=== PATIENT | female | born 1985 | race Caucasian/White ===

== ENCOUNTER 2019-11-24 14:35 | Emergency (ER) | payer OTHER ==
--- NOTE | 2019-11-24 14:56 | ER Document Report ---
ED Medical Screen (RME) - General Chief Complaint: Dizziness Stated Complaint: DIZZINESS Time Seen by Provider: 11/24/19 14:54 Mode of Arrival: Ambulatory Information source: Patient Notes: 34-year-old female presents to ED for concerns planing of dizziness and lightheadedness. She states is been going on for months but has been more frequently this last week and then today is constant. She states usually she does not have the dizziness when she stands sitting but now she has it when she sitting. She states a month ago her hemoglobin was 10.8 and they told her that that can cause dizziness. She asked to have her blood report drawn and no one merlyn it yet. She does have a history of a tonsillectomy D&C salpingectomy and breast augmentation. She also has a history of PCOS prediabetes neuropathy GERD asthma clavicle fracture and migraine. She does not smoke drink or use any illicit drugs. Patient is alert oriented respirations regular nonlabored speaking in full sentences walks with even steady gait. I have greeted and performed a rapid initial assessment of this patient. A comprehensive ED assessment and evaluation of the patient, analysis of test results and completion of medical decision making process will be conducted by an additional ED providers. Physical Exam - Vital signs Vitals: Temp Pulse Resp BP Pulse Ox 98.1 F 80 16 145/87 H 100 11/24/19 14:44 11/24/19 14:44 11/24/19 14:44 11/24/19 14:44 11/24/19 14:44 Course - Vital Signs Vital signs: Temp Pulse Resp BP Pulse Ox 98.1 F 80 16 145/87 H 100 11/24/19 14:44 11/24/19 14:44 11/24/19 14:44 11/24/19 14:44 11/24/19 14:44
[2019-11-24 15:28] LABS: APPEARANCE,URINE CLEAR; BILIRUBIN,URINE NEGATIVE (NEGATIVE); COLOR,URINE STRAW; GLUCOSE, URINE NEGATIVE (NEGATIVE); KETONES,URINE NEGATIVE (NEGATIVE); LEUKOCYTE ESTERASE,URINE NEGATIVE (NEGATIVE); NITRITE,URINE NEGATIVE (NEGATIVE); PROTEIN,URINE NEGATIVE (NEGATIVE); URINE SPECIFIC GRAVITY 1.003; UROBILINOGEN,URINE NEGATIVE mg/dL (<2.0)
[2019-11-24 15:35] LABS: ABSOLUTE EOSINOPHILS # (AUTO) 0.1 10^3/uL (0.0-0.6); ABSOLUTE LYMPHOCYTES (AUTO) 3.3 10^3/uL (0.5-4.7); ABSOLUTE MONOCYTES (AUTO) 0.4 10^3/uL (0.1-1.4); ABSOLUTE NEUT (AUTO) 3.6 10^3/uL (1.7-8.2); BASOPHILS % (AUTO) 0.4 % (0-2); EOSINOPHILS % (AUTO) 1.6 % (0-6); HEMATOCRIT 35.1 % (36.0-47.0); HEMOGLOBIN 11.6 g/dL (12.0-15.5); LYMPHOCYTES % (AUTO) 44.1 % (13-45); MEAN CORPUSCULAR HGB CONC 33.1 g/dL (32.0-36.0); MEAN CORPUSCULAR VOLUME 79 fl (80-97); MONOCYTES % (AUTO) 5.8 % (3-13); PLATELET COUNT 291 10^3/uL (150-450); RED BLOOD COUNT 4.47 10^6/uL (3.72-5.28); RED CELL DISTRIBUTION WIDTH 15.5 % (11.5-14.0); SEGMENTED NEUTROPHILS % (AUTO) 48.1 % (42-78); TOTAL CELLS COUNTED % (AUTO) 100 %; WHITE BLOOD COUNT 7.4 10^3/uL (4.0-10.5)
[2019-11-24 15:45] LABS: ALBUMIN 4.7 g/dL (3.5-5.0); ALKALINE PHOSPHATASE 78 U/L (38-126); ANION GAP 13 (5-19); ASPARTATE AMINO TRANSFERASE 83 U/L (14-36); BILIRUBIN,DIRECT 0.2 mg/dL (0.0-0.4); BILIRUBIN,TOTAL 0.4 mg/dL (0.2-1.3); BLOOD UREA NITROGEN 13 mg/dL (7-20); CALCIUM 9.8 mg/dL (8.4-10.2); CARBON DIOXIDE 25 mmol/L (22-30); CHLORIDE 100 mmol/L (98-107); GLUCOSE 121 mg/dL (75-110); POTASSIUM 4.3 mmol/L (3.6-5.0); TOTAL PROTEIN 7.2 g/dL (6.3-8.2)
--- NOTE | 2019-11-24 15:52 | ER Document Report ---
ED Dizziness/Weakness - General Chief Complaint: Dizziness Stated Complaint: DIZZINESS Time Seen by Provider: 11/24/19 14:54 Mode of Arrival: Ambulatory Information source: Patient - [facility] Patient complains to provider of: Dizziness Onset: Other - 1 month Onset/Duration: Gradual Quality of pain: No pain Associated symptoms: Lightheaded. denies: Chest pain, Confused, Diarrhea, Ky ck, Headache, Loss of motor function, Loss of strength, Loss of sensation, Nausea, Vomiting, Weak all over Exacerbated by: Change in position. denies: Movement of head Baseline gait: Walks w/o assistance Notes: Patient is a 34-year-old female with a past medical history of PCOS who presents with lightheadedness. She states she has been lightheaded for about 1 month. It has gotten worse the past several days. She feels like she is spinning. She denies any room spinning. She denies any headaches. No ear pain or eye pain. She denies any HEENT symptoms. She feels like she is lightheaded even lying down now. Lightheadedness is not worse with moving her head but she is more lightheaded with moving her eyes. She has not fallen or had a syncopal episode. She does mention she had a cold about 1 month ago that resolved. She denies any chest pain or palpitations. No shortness of breath or cough. No abdominal pain. No diarrhea or urinary symptoms. She did go to her PCP a while ago and was told that her hemoglobin was 10.8 and that could be causing dizziness. She has not had it rechecked since then. She denies any blood in the stool or black stool. She states she has been eating and drinking normally. She denies any headaches. She states she used to have migraines about 8 years ago and had di zziness with that but currently does not have any headaches. - Related Data Allergies/Adverse Reactions: No Known Allergies Allergy (Verified 11/24/19 14:55) Past Medical History - General Information source: Patient - Social History Smoking Status: Never Smoker Chew tobacco use (# tins/day): No Frequency of alcohol use: None Drug Abuse: None Family History: Reviewed & Not Pertinent - Past Medical History Cardiac Medical History: Reports: None Pulmonary Medical History: Reports: None Endocrine Medical History: Reports: Other - PCOS Renal/ Medical History: Reports: None Malignancy Medical History: Reports: None GI Medical History: Reports: None Past Surgical History: Reports: Hx Section, Hx Tubal Ligation Review of Systems - Review of Systems Constitutional: denies: Chills, Diaphoresis, Fever EENT: denies: Eye discharge, Ear pain, Throat pain, Throat swelling, Mouth pain Cardiovascular: Lightheaded. denies: Chest pain, Palpitations, Heart racing, Syncope Respiratory: denies: Cough, Hurts to breathe, Short of breath, Sputum Gastrointestinal: denies: Abdominal pain, Diarrhea, Nausea, Vomiting, Constipation, Black stools Genitourinary: denies: Burning, Dysuria, Flank pain Musculoskeletal: denies: Back pain, Muscle pain, Muscle stiffness Skin: denies: Lesions, Rash Hematologic/Lymphatic: Anemia Neurological/Psychological: denies: Confusion, Weakness, Seizure, Lost consciousness, Headaches, Numbness, Suicidal ideation Physical Exam - Vital signs Vitals: Temp Pulse Resp BP Pulse Ox 98.1 F 80 16 145/87 H 100 11/24/19 14:44 11/24/19 14:44 11/24/19 14:44 11/24/19 14:44 11/24/19 14:44 Interpretation: Normal - General General appearance: Appears well In distress: None - HEENT Head: Normocephalic, Atraumatic Eyes: Normal, Other - Mild horizontal nystagmus appreciated on exam. No vertical nystagmus Conjunctiva: Normal Extraocular movements intact: Yes Pupils: PERRL Ears: Normal. No: Ecchymosis External canal: Normal Tympanic membrane: Normal Neck: Normal - Respiratory Respiratory status: No respiratory distress. No: Cyanosis, Retractions, Tachypnea Chest status: Nontender Breath sounds: Normal. No: Rales, Rhonchi, Wheezing Chest palpation: Normal - Cardiovascular Rhythm: Regular Heart sounds: Normal auscultation - Abdominal Inspection: Normal Distension: No distension Tenderness: Nontender - Back Back: Normal - Extremities General upper extremity: Normal inspection, Nontender, Normal ROM, Normal strength General lower extremity: Normal inspection, Nontender, Normal ROM, Normal strength - Neurological Cognition: Normal Orientation: AAOx4 Matt Coma Scale Eye Opening: Spontaneous Irving Coma Scale Verbal: Oriented Irving Coma Scale Motor: Obeys Commands Matt Coma Scale Total: 15 Speech: Normal Cerebellar coordination: Normal Motor strength normal: LUE, RUE, LLE, RLE Sensory: Normal - Psychological Associated symptoms: Normal affect, Normal mood - Skin Skin Temperature: Warm Skin Moisture: Dry Skin Color: Normal Course - Re-evaluation Re-evalutation: 11/24/19 18:38 EKG does not show arrhythmia. I do not believe this is a CVA. She has no dysarthria or feelings of being off balance. Patient states she had some improvement with meclizine. States she would like to be discharged. I discussed possible causes of her lightheadedness such as vertigo or labyrinthitis with her history of recent cold. I also informed her that her hemoglobin is better than previous. I offered to write her prescription for meclizine but she states that she can buy it [id number]. She was told to follow-up with her PCP. She verbalized understanding. Return precautions provided. - Vital Signs Vital signs: Temp Pulse Resp BP Pulse Ox 98.1 F 80 16 145/87 H 100 11/24/19 14:44 11/24/19 14:44 11/24/19 14:44 11/24/19 14:44 11/24/19 14:44 - Laboratory Result Diagrams: 11/24/19 15:05 11/24/19 15:05 Laboratory results interpreted by me: 11/24/19 11/24/19 11/24/19 15:05 15:05 15:05 Hgb 11.6 L Hct 35.1 L MCV 79 L MCH 26.0 L RDW 15.5 H Glucose 121 H AST 83 H ALT 62 H Urine Blood SMALL H - EKG Interpretation by [place] EKG shows normal: Sinus rhythm Rate: Normal Rhythm: NSR When compared to previous EKG there are: Previous EKG unavailable Additional EKG results interpreted by me: 11/24/19 17:25 Sinus rhythm at a rate of 75. QTc 429. No acute ST changes. No previous EKG available for comparison. Discharge - Discharge Clinical Impression: Lightheadedness Condition: Stable Disposition: HOME, SELF-CARE Instructions: Dizziness ([facility]) Additional Instructions: Follow-up with your family doctor. Return to the ED for any worsening symptoms. Ensure you are staying hydrated.
--- NOTE | 2019-11-24 16:01 | RADIOLOGY REPORT (SQ) ---
EXAM DESCRIPTION: CT HEAD WITHOUT IMAGES COMPLETED DATE/TIME: 11/24/2019 3:53 pm REASON FOR STUDY: dizziness COMPARISON: None. TECHNIQUE: Axial images acquired through the brain without intravenous contrast. Images reviewed wi th bone, brain and subdural windows. Additional sagittal and coronal reconstructions were generated. Images stored on PACS. All CT scanners at this facility use dose modulation, iterative reconstruction, and/or weight based d osing when appropriate to reduce radiation dose to as low as reasonably achievable (ALARA). [facility]: Dose Right [facility]: CareDose [facility]: Dose Right [facility]: Teradose 4D [facility]: [place] RADIATION DOSE: CT Rad equipment meets quality standard of care and radiation dose reduction techniq ues were employed. CTDIvol: 53.2 mGy. DLP: 1070 mGy-cm. mGy. LIMITATIONS: None. FINDINGS: VENTRICLES: Normal size and contour. CEREBRUM: No masses. No hemorrhage. No midline shift. No evidence for acute infarction. Normal gra y/white matter differentiation. No areas of low density in the white matter. CEREBELLUM: No masses. No hemorrhage. No alteration of density. No evidence for acute infarction. EXTRAAXIAL SPACES: No fluid collections. No masses. ORBITS AND GLOBE: No intra- or extraconal masses. Normal contour of globe without masses. CALVARIUM: No fracture. PARANASAL SINUSES: No fluid or mucosal thickening. SOFT TISSUES: No mass or hematoma. OTHER: No other significant finding. IMPRESSION: NORMAL BRAIN CT WITHOUT CONTRAST. EVIDENCE OF ACUTE STROKE: NO. COMMENT: Quality ID # [id number]: Final reports with documentation of one or more dose reduction techniques (e.g., Automated exposure control, adjustment of the mA and/or kV according to patient size, use of iterative reconstruction technique) TECHNICAL DOCUMENTATION: JOB ID: [id number] 2010 [employer]- All Rights Reserved Reading location - IP/workstation name: [id number]
[2019-11-24] MEDS ORDERED: MECLIZINE HCL 25 MG TABLET PO ONE (16:30)
[2019-11-24 18:56] VITALS: BP 130/60
--- NOTE | 2019-11-24 20:24 | EKG REPORT ---
SEVERITY:- NORMAL ECG - SINUS RHYTHM : Confirmed by: Dominguez Bell MD 24-Nov-2019 20:23:02
== END 2019-11-24 18:55 | disposition home or self-care (01) ==
LOC: ER 14:35
DX: R42 Dizziness and giddiness (principal); E28.2 Polycystic ovarian syndrome
CPT/HCPCS: 36415; 70450; 80053; 81001; 83690; 84484; 84703; 85025; 87086; 93005; 93010; 99285